=== PATIENT | female | born 1980 | race Caucasian/White ===

== ENCOUNTER 2019-02-08 12:09 | Emergency (ER) | payer BC ==
[2019-02-08 12:10] VITALS: BMI 32.7
[2019-02-08 12:19] VITALS: O2SAT 100
[2019-02-08 13:09] LABS: BASO # 0.1 K/uL (0.0-0.2); BASO % 0.9 % (0.0-2.0); EOS # 0.3 K/uL (0.0-0.7); EOS % 2.7 % (0.0-4.0); LYMPH # 2.4 K/uL (1.0-4.3); LYMPH % 22.7 % (20.0-40.0); MEAN CELL VOLUME 84.3 fL (81.0-99.0); MEAN CORPUSCULAR HEMOGLOBIN 28.9 pg (27.0-31.0); MEAN CORPUSCULAR HGB CONC 34.3 g/dL (33.0-37.0); MEAN PLATELET VOLUME 7.1 fL (7.2-11.7); MONO # 0.8 K/uL (0.0-0.8); MONO % 7.2 % (0.0-10.0); NEUT # 6.9 K/uL (1.8-7.0); NEUT % 66.5 % (50.0-75.0); RBC 4.16 Mil/uL (3.80-5.20); RED CELL DISTRIBUTION WIDTH 14.2 % (11.5-14.5)
[2019-02-08 13:11] LABS: WHITE BLOOD COUNT 10.4 K/uL (4.8-10.8)
[2019-02-08 13:18] LABS: INR 1.2; PROTHROMBIN TIME 12.7 SECONDS (9.7-12.2)
[2019-02-08 13:25] LABS: ALB/GLOB RATIO 1.4 (1.0-2.1); ALBUMIN 4.6 g/dL (3.5-5.0); ALT/SGPT 29 U/L (9-52); AST/SGOT 25 U/L (14-36); BLOOD UREA NITROGEN 11 mg/dL (7-17); CALCIUM 9.5 mg/dl (8.6-10.4); GFR NON-AFRICAN AMERICAN > 60
--- NOTE | 2019-02-08 13:46 | C.PDOC ---
History Of Present Illness 39 year old female with PMHx of menorrhagia presents to the ED complaining of vaginal bleeding since 12/24/18. Reports she was using 1 pad per day but for the past 2 days bleeding has become heavier and with clots. States she has been evaluated at the medical clinic and also by an brand specialist in [place]. Reports she took Tranexamic acid in September 2018. Denies any chest pain, weakness, shortness of breath or possibility of . Time Seen by Provider: 02/08/19 12:24 Chief Complaint (Nursing): Female Genitourinary History Per: Patient History/Exam Limitations: no limitations Onset/Duration Of Symptoms: Days Current Symptoms Are (Timing): Still Present Associated Symptoms: denies: Chest Pain Abnormal Vaginal Bleeding: Yes Past Medical History Reviewed: Historical Data, Nursing Documentation, Vital Signs Vital Signs: Last Vital Signs Temp 98.1 F 02/08/19 12:16 Pulse 92 H 02/08/19 12:16 Resp 18 02/08/19 12:16 BP 148/98 H 02/08/19 12:16 Pulse Ox 100 02/08/19 12:16 Primary Care Provider: Scott Fontanez Surg - Medical History PMH: No Chronic Diseases Surgical History: No Surg Hx - [facility] Procedures D & C NEC (07/22/13) HYSTEROSCOPY (07/22/13) Family History: States: No Known Family Hx - Social History Hx Tobacco Use: No Hx Alcohol Use: No Hx Substance Use: No - Immunization History Hx Tetanus Toxoid Vaccination: No Hx Influenza Vaccination: No Hx Pneumococcal Vaccination: No Review Of Systems Except As Marked, All Systems Reviewed And Found Negative. Constitutional: Negative for: Fever, Chills, Weakness Cardiovascular: Negative for: Chest Pain Respiratory: Negative for: Shortness of Breath Gastrointestinal: Negative for: Nausea, Vomiting, Abdominal Pain Genitourinary: Positive for: Vaginal Bleeding. Negative for: Dysuria, Hematuria Physical Exam - Physical Exam Appears: Non-toxic, No Acute Distress Skin: Warm, Dry, No Rash Head: Normacephalic Eye(s): bilateral: Normal Inspection Nose: Normal Oral Mucosa: Moist Neck: Supple Chest: Symmetrical Cardiovascular: Rhythm Regular Respiratory: Normal Breath Sounds, No Rales, No Rhonchi, No Wheezing Gastrointestinal/Abdominal: Bowel Sounds, Soft, Tenderness (Mild suprapubic tenderness), No Distention, No Guarding, No Rebound, Other (Neg Mcburney's sign, Neg Kidd's sign ) Extremity: Bilateral: Atraumatic, Normal Color And Temperature, Normal ROM Neurological/Psych: Oriented x3, Normal Speech Gait: Steady ED Course And Treatment - Laboratory Results Result Diagrams: 02/08/19 13:01 02/08/19 13:01 Lab Results: PT 12.7 SECONDS (9.7-12.2) H 02/08/19 13:01 INR 1.2 02/08/19 13:01 APTT 32.0 SECONDS (21-34) 02/08/19 13:01 Total Bilirubin 0.5 mg/dL (0.2-1.3) 02/08/19 13:01 AST 25 U/L (14-36) 02/08/19 13:01 ALT 29 U/L (9-52) 02/08/19 13:01 Alkaline Phosphatase 51 U/L (38-126) 02/08/19 13:01 Total Protein 7.8 g/dL (6.3-8.3) 02/08/19 13:01 Albumin 4.6 g/dL (3.5-5.0) 02/08/19 13:01 Globulin 3.2 gm/dL (2.2-3.9) 02/08/19 13:01 Albumin/Globulin Ratio 1.4 (1.0-2.1) 02/08/19 13:01 O2 Sat by Pulse Oximetry: 100 (RA) Pulse Ox Interpretation: Normal - CT Scan/US transvaginal US Other Rad Studies (CT/US): Read By Radiologist, Radiology Report Reviewed CT/US Interpretation: Accession No. : [id number]. Patient Name / ID : PAPA HORN / [id number]. Exam Date : 02/08/2019 13:36:34 ( Approved ). Study Comment : Sex / Age : F / 39Y. Creator : Jeannette Barron MD. Dictator : Jeannette Barron MD. Gas Refrigerator Servicer : Social Media Senior Associate : Jeannette Barron MD. Approver2 : Report Date : 02/08/2019 15:29:06. My Comment : . This report is currently processing and HAS NOT BEEN OFFICIALLY SIGNED BY THE PHYSICIAN - ESTIMATED TIME OF APPROVAL IS 02/08/2019 15:34. Date of service: 02/08/2019. HISTORY: vaginal bleeding. COMPARISON: None available. TECHNIQUE: Transabdominal and endovaginal ultrasound examination of the pelvis was performed. FINDINGS: UTERUS: Measures 11.6 x 5.9 x 6.4 cm. Normal in size and appearance. There is a 1 x 1.1 x 1.5 centimeter uterine fundal leiomyoma. There is 0.6 x 0.5 x 0.5 centimeters cyst at the uterine fundus the may represent degenerated fibroid. ENDOMETRIUM: Measures 17 mm in diameter. Unremarkable. CERVIX: There is a cyst seen in the cervix likely represent nabothian cyst with septation measures 1.9 x 1.1 x 1.7 centimeter. RIGHT OVARY: Measures 2.8 x 2.1 x 2.1 cm. No solid mass. Normal flow. There is a 2.6 x 1.7 x 1.6 centimeter right para ovarian cyst. LEFT OVARY: Measures 5.2 x 3.8 x 4.5 cm. No solid mass. Normal flow. There is 2.9 x 2.3 x 3.1 centimeter left ovarian cyst. There is also 1.8 x 1.4 x 2.1 centimeters cyst in the left adnexa. FREE FLUID: No significant free fluid noted. OTHER FINDINGS: None. IMPRESSION: 1.5 centimeter fundal leiomyoma. Thick endometrial stripe measures up to 17 millimeter. Bilateral adnexal cyst larger on the left. Progress Note: Blood and Urine collected and sent to the lab for analysis. US transvaginal ordered. - Physician Consult Information Physician Contacted: Michael Campoverde Outcome Of Conversation: Discussed patient with admissions manager wheel mill operator, recommends follow up with wheel mill operator as outpatient. Disposition Counseled Patient/Family Regarding: Studies Performed, Diagnosis, Need For Fo llowup - Disposition Referrals: Jade Guallpa MD [Staff Provider] - Disposition: HOME/ ROUTINE Disposition Time: 16:15 Condition: STABLE Additional Instructions: FOLLOW UP WITH MARIONETTE PERFORMER SCHEDULED FEBRUARY 12 RETURN TO ER IF YOU HAVE WORSENING SYMPTOMS Instructions: Heavy Periods (DC) Forms: [employer] (Turkish) Print Language: AZERI - Clinical Impression Clinical Impression: Dysfunctional uterine bleeding - Scribe Statement The provider has reviewed the documentation as recorded by the Scribe Em Tabares All medical record entries made by the Maritzaibe were at my direction and personally dictated by me. I have reviewed the chart and agree that the record accurately reflects my personal performance of the history, physical exam, medical decision making, and the department course for this patient. I have also personally directed, reviewed, and agree with the discharge instructions and disposition.
[2019-02-08 14:54] LABS: URINE BACTERIA OCC (<OCC); URINE BILIRUBIN NEGATIVE (NEGATIVE); URINE BLOOD 3+ (NEGATIVE); URINE CLARITY Clear (Clear); URINE COLOR Red (YELLOW); URINE GLUCOSE (UA) 1+ mg/dL (Normal); URINE LEUKOCYTE ESTERASE NEG Leu/uL (Negative); URINE PROTEIN 2+ mg/dL (NEGATIVE); URINE UROBILINOGEN NORMAL mg/dL (0.2-1.0)
[2019-02-08 14:55] LABS: HCG,QUALITATIVE URINE NEGATIVE (NEGATIVE)
[2019-02-08 15:26] VITALS: RESP 19
--- NOTE | 2019-02-08 15:32 | US ---
Date of service: 02/08/2019 HISTORY: vaginal bleeding COMPARISON: None available. TECHNIQUE: Transabdominal and endovaginal ultrasound examination of the pelvis was performed. FINDINGS: UTERUS: Measures 11.6 x 5.9 x 6.4 cm. Normal in size and appearance. There is a 1 x 1.1 x 1.5 centimeter uterine fundal leiomyoma. There is 0.6 x 0.5 x 0.5 centimeters cyst at the uterine fundus the may represent degenerated fibroid. ENDOMETRIUM: Measures 17 mm in diameter. Unremarkable. CERVIX: There is a cyst seen in the cervix likely represent nabothian cyst with septation measures 1.9 x 1.1 x 1.7 centimeter. RIGHT OVARY: Measures 2.8 x 2.1 x 2.1 cm. No solid mass. Normal flow. There is a 2.6 x 1.7 x 1.6 centimeter right para ovarian cyst. LEFT OVARY: Measures 5.2 x 3.8 x 4.5 cm. No solid mass. Normal flow. There is 2.9 x 2.3 x 3.1 centimeter left ovarian cyst. There is also 1.8 x 1.4 x 2.1 centimeters cyst in the left adnexa. FREE FLUID: No significant free fluid noted. OTHER FINDINGS: None. IMPRESSION: 1.5 centimeter fundal leiomyoma. Thick endometrial stripe measures up to 17 millimeter. Bilateral adnexal cyst larger on the left.
[2019-02-08 16:37] VITALS: BP 129/83; PULSE 66; TEMP 97.9
== END 2019-02-08 16:38 | disposition home or self-care (01) ==
LOC: C.ER 12:09
DX: N93.8 Other specified abnormal uterine and vaginal bleeding (principal)